=== PATIENT | female | born 1990 | race Caucasian/White ===

== ENCOUNTER 2024-05-19 00:34 | Observation (INO) | payer SELFPAY ==
[2024-05-20 01:26] VITALS: BMI 24.0
[2024-05-20] MEDS: traMADol HCl 50 MG TAB PO PRN (02:22)
[2024-05-20] MEDS: Ibuprofen 800 MG TAB PO SCH (02:23)
[2024-05-20 05:35] LABS: Hematocrit 19.7 % (34.9-44.5); Hemoglobin 6.2 g/dL (12.0-15.5)
[2024-05-20 05:51] LABS: Anion Gap 12 mmol/L (10-20); BUN (Urea Nitrogen) 7 mg/dL (7.0-18.7); Calc. Creatinine Clearance 120 mL/min (70-130); Calcium 8.2 mg/dL (7.8-10.44); Carbon Dioxide 18 mmol/L (22-29); Chloride 112 mmol/L (98-107); Estimated GFR 116; Glucose 101 mg/dL (70-105); Sodium 138 mmol/L (136-145)
[2024-05-20] MEDS: Levothyroxine Sodium 25 MCG TAB PO SCH (05:55)
[2024-05-20] MEDS ORDERED: Levothyroxine Sodium 25 MCG TAB PO SCH (06:00)
[2024-05-20] MEDS ORDERED: Acetaminophen 500 MG TAB PO SCH (07:00)
[2024-05-20] MEDS: diphenhydrAMINE 50 MG/ML VIAL IVP SCH (07:44)
[2024-05-20] MEDS: Acetaminophen 500 MG TAB PO PRN (07:44)
[2024-05-20] MEDS: hydrOXYzine 25 MG TAB PO PRN (07:57)
[2024-05-20] MEDS: Cephalexin 500 MG CAP PO SCH (10:18)
[2024-05-20] MEDS: Ondansetron ODT 4 MG TAB PO PRN (10:41)
[2024-05-20 11:28] VITALS: TEMP 97.8
[2024-05-20 15:13] LABS: Hematocrit 23.4 % (34.9-44.5); Hemoglobin 7.5 g/dL (12.0-15.5)
[2024-05-20 16:36] VITALS: BP 100/61
[2024-05-21] MEDS ORDERED: Levothyroxine Sodium 50 MCG TAB PO SCH (06:00)
== END 2024-05-20 17:04 | disposition home or self-care (01) ==
LOC: CSHPP 05-20 00:55
PROVIDERS: ADMIT Obstetrics & Gynecology; ATTEND Obstetrics & Gynecology
DX: O46.91 Antepartum hemorrhage, unspecified, first trimester (principal); O99.011 Anemia complicating pregnancy, first trimester; D62 Acute posthemorrhagic anemia; O23.41 Unspecified infection of urinary tract in pregnancy, first trimester; O99.281 Endocrine, nutritional and metabolic diseases complicating pregnancy, first trimester; E03.9 Hypothyroidism, unspecified; O09.521 Supervision of elderly multigravida, first trimester; O99.331 Smoking (tobacco) complicating pregnancy, first trimester; F17.290 Nicotine dependence, other tobacco product, uncomplicated; Z3A.13 13 weeks gestation of pregnancy; Z98.51 Tubal ligation status; Z90.49 Acquired absence of other specified parts of digestive tract; Z79.890 Hormone replacement therapy; Z79.899 Other long term (current) drug therapy
CPT/HCPCS: 36415; 36430; 80048; 84443; 85014; 85018; 86850; 86900; 86901; 96374; G0378; J1200; P9016; Q0162